=== PATIENT | female | born 1965 | race Caucasian/White ===

== ENCOUNTER 2017-04-08 15:18 | Emergency (ER) | payer BC ==
[2017-04-08] MEDS ORDERED: Ketorolac 60 MG/2 ML SDV IM ONE (16:40)
--- NOTE | 2017-04-08 16:40 | EDM.PDOC ---
ED HPI GENERAL MEDICAL PROBLEM - General Chief Complaint: Lower Extremity Injury/Pain Stated Complaint: Right knee injury, Right knee pain Time Seen by Provider: 04/08/17 15:54 Source of Information: Reports: Patient History Limitations: Reports: No Limitations - History of Present Illness INITIAL COMMENTS - FREE TEXT/NARRATIVE: Patient fell off of step while attempting to wash truck. Injured right ankle and knee when she fell. Has not tried to walk since incident. Thought she heard popping noise when this happened. No numbness/tingling distal to injury. Denies hitting head. Denies other injuries/complaints. Has history of significant right ankle strain/sprain in past when she fell while watering horses. Declines oral pain medication due to history of sensitive stomach and prior issues with ulcers. History significant for obesity also. Admits to poorer diet and chronic consumption of Mountain Dew Right Ankle Pain Score (Numeric/FACES): 9 knee Pain Score (Numeric/FACES): 9 - Related Data Allergies Allergy/AdvReac Type Severity Reaction Status Date / Time Sulfa (Sulfonamide Allergy Rash Verified 04/08/17 15:21 Antibiotics) Home Meds: Home Meds Ibuprofen 400 mg PO BID PRN 10/16/15 [History] Omeprazole 20 mg PO BIDAC 10/16/15 [History] Ranitidine HCl [Zantac] 150 mg PO BID 10/16/15 [History] Past Medical History HEENT History: Reports: Impaired Vision, Sinusitis Other HEENT History: wears glasses Respiratory History: Reports: Bronchitis, Recurrent, Other (See Below) Other Respiratory History: Hx. walking pneumonia Gastrointestinal History: Reports: Gastritis, GERD Musculoskeletal History: Reports: Arthritis, Back Pain, Chronic Neurological History: Reports: Headaches, Chronic Endocrine/Metabolic History: Reports: Obesity/BMI 30+ - Infectious Disease History Infectious Disease History: Reports: Chicken Pox Social & Family History - Tobacco Use Smoking Status *Q: Never Smoker Second Hand Smoke Exposure: No - Caffeine Use Caffeine Use: Reports: Coffee, Soda - Recreational Drug Use Recreational Drug Use: No Review of Systems - Review of Systems Review Of Systems: ROS reveals no pertinent complaints other than HPI. ED EXAM, GENERAL - Physical Exam Exam: See Below Exam Limited By: No Limitations General Appearance: Alert, WD/WN, Mild Distress, Obese Eye Exam: Bilateral Eye: EOMI, PERRL Ears: Normal External Exam Nose: Normal Inspection. No: Nasal Swelling, Nasal Drainage Throat/Mouth: Normal Inspection, Normal Lips, Normal Voice, No Airway Compromise Head: Atraumatic, Normocephalic Neck: Supple, Non-Tender, Full Range of Motion Respiratory/Chest: No Respiratory Distress, Chest Non-Tender Cardiovascular: Normal Peripheral Pulses Peripheral Pulses: 2+: Dorsalis Pedis (L), Dorsalis Pedis (R) GI/Abdominal: Soft, Non-Tender Extremities: Normal Inspection, Other (No obvious laxity noted during exam of right knee/ankle. ) Neurological: Alert, Oriented, Normal Cognition Psychiatric: Normal Affect, Normal Mood Skin Exam: Warm, Dry, Intact, Other (early bruising noted on lower leg just below knee right. ). No: Erythema, Increased Warmth, Mottled, Wound/Incision Course - Vital Signs Last Recorded V/S: Last Vital Signs Temp 36.7 C 04/08/17 15:30 Pulse 74 04/08/17 15:30 Resp 20 04/08/17 15:30 BP 148/52 H 04/08/17 15:30 Pulse Ox 98 04/08/17 15:30 - Orders/Labs/Meds Orders: Active Orders 24 hr Category Date Time Status Ankle Min 3V Rt [CR] Stat Exams 04/08/17 15:22 Taken Knee 3V Rt [CR] Stat Exams 04/08/17 15:22 Taken Meds: Medications Discontinued Medications Generic Name Dose Route Start Last Admin Trade Name Freq PRN Reason Stop Dose Admin Ketorolac Tromethamine 60 mg 04/08/17 16:40 04/08/17 16:59 Toradol IM 04/08/17 16:41 60 mg ONETIME ONE Administration - Radiology Interpretation Free Text/Narrative:: Xrays of knee and ankle on right performed. Small abnormality noted on tibial plateau lateral view but does not appear to be obvious fracture. Ankle film shows what could be old avulsion fracture laterally. Again, no obvious acute fracture. - Re-Assessments/Exams Free Text/Narrative Re-Assessment/Exam: Patient accepted IM Toradol. Did not want additional pain medication. Says she wishes to avoid narcotics as well as any other oral pain meds. Placed in air splint and knee immobilizer. Given crutches. Recommended to go home with sister and rest/avoid weight bearing over the next few days. To call local clinic tomorrow and arrange follow up check on Sunday. At that time MRI can be considered if no significant improvement is noted. Radiology to review xray. Will call patient if felt to be suggestive of fracture after review. Diet and Mountain Dew usage reviewed prior to discharge. Precautions given. OK to use her OTC pain meds at home as needed. Free Text/Narrative Re-Assessment/Exam: 04/09/17 13:23 No acute fracture noted per Radiology. Departure - Departure Time of Disposition: 16:34 Disposition: Home, Self-Care 01 Condition: Good Clinical Impression: Contusion of right knee and lower leg Qualifiers: Encounter type: initial encounter Qualified Code(s): S80.01XA - Contusion of right knee, initial encounter Right ankle sprain Qualifiers: Encounter type: initial encounter Involved ligament of ankle: unspecified ligament Qualified Code(s): S93.401A - Sprain of unspecified ligament of right ankle, initial encounter - Discharge Information Instructions: Crutch Use, [id number], Ketorolac injection, Ankle Sprain, Easy -to-Read, Knee Sprain, [id number], Knee Immobilizer, [id number], How to Use a Knee Brace Referrals: Christina Shi PA [Primary Care Provider] - Forms: ED Department Discharge, Return to Work/School Form Additional Instructions: No weight-bearing on injured leg for the next several days. Follow up on Sunday at local clinic for recheck of knee and foot. You may need to get an MRI if it it has not improved. Wear air splint and leg immobilizer for support. As discussed, there were a few small abnormalities noted on the xrays, however no obvious fracture seen. We will call you if Radiology feels there is a fracture once they have reviewed your films. Follow up otherwise as needed. - My Orders Last 24 Hours: My Active Orders 04/08/17 15:22 Ankle Min 3V Rt [CR] Stat Knee 3V Rt [CR] Stat - Assessment/Plan Last 24 Hours: My Active Orders 04/08/17 15:22 Ankle Min 3V Rt [CR] Stat Knee 3V Rt [CR] Stat
[2017-04-08 17:57] VITALS: BP 148/52
== END 2017-04-08 17:15 | disposition home or self-care (01) ==
LOC: LL.ED 15:18
DX: S80.01XA Contusion of right knee, initial encounter (principal); S93.401A Sprain of unspecified ligament of right ankle, initial encounter; K21.9 Gastro-esophageal reflux disease without esophagitis; E66.9 Obesity, unspecified; Z68.35 Body mass index [BMI] 35.0-35.9, adult; Z88.2 Allergy status to sulfonamides; W17.89XA Other fall from one level to another, initial encounter
CPT/HCPCS: 73562; 73610; 96372; 99283; J1885; L4350

== ENCOUNTER 2020-07-02 13:25 | Emergency (ER) | payer BC ==
[2020-07-02 17:58] LABS: CHLORIDE,CL 105 mmol/L (98-107); SODIUM,NA 139 mmol/L (136-145)
[2020-07-02 18:01] VITALS: BP 131/85; PULSE 59
--- NOTE | 2020-07-02 18:20 | EDM.PDOC ---
ED HPI GENERAL MEDICAL PROBLEM - General Chief Complaint: Chest Pain Stated Complaint: Chest pain Time Seen by Provider: 07/02/20 13:35 Source of Information: Reports: Patient History Limitations: Reports: No Limitations - History of Present Illness INITIAL COMMENTS - FREE TEXT/NARRATIVE: Pt presents with left sided chest pain Began several hours ago Worse now Pain 7/10 Has hx/o same in past but not recently Pt given NTG SL in ER and pain almost immediately went to 2/10 No fever No cough Onset: Today, Sudden Duration: Hour(s): Location: Reports: Chest Middle Chest Pain Score (Numeric/FACES): 2 - Related Data Allergies Allergy/AdvReac Type Severity Reaction Status Date / Time Sulfa (Sulfonamide Allergy Rash Verified 07/02/20 17:45 Antibiotics) Home Meds: Home Meds Ranitidine HCl [Ranitidine] 1 tab PO DAILY 07/02/20 [History] Past Medical History HEENT History: Reports: Impaired Vision, Sinusitis Other HEENT History: wears glasses Respiratory History: Reports: Bronchitis, Recurrent, Other (See Below) Other Respiratory History: Hx. walking pneumonia Gastrointestinal History: Reports: Gastritis, GERD Musculoskeletal History: Reports: Arthritis, Back Pain, Chronic Neurological History: Reports: Headaches, Chronic Endocrine/Metabolic History: Reports: Obesity/BMI 30+ - Infectious Disease History Infectious Disease History: Reports: Chicken Pox Social & Family History - Tobacco Use Smoking Status *Q: Never Smoker Second Hand Smoke Exposure: No - Caffeine Use Caffeine Use: Reports: Coffee, Soda - Recreational Drug Use Recreational Drug Use: No ED ROS GENERAL - Review of Systems Review Of Systems: See Below Constitutional: Reports: No Symptoms HEENT: Reports: No Symptoms Respiratory: Reports: No Symptoms Cardiovascular: Reports: Chest Pain GI/Abdominal: Reports: No Symptoms Musculoskeletal: Reports: No Symptoms ED EXAM, GENERAL - Physical Exam Exam: See Below Exam Limited By: No Limitations General Appearance: Alert, WD/WN, Mild Distress Throat/Mouth: Normal Oropharynx Neck: Supple Respiratory/Chest: Lungs Clear Cardiovascular: Regular Rate, Rhythm GI/Abdominal: Soft, Non-Tender Extremities: No Pedal Edema Neurological: No Motor/Sensory Deficits Psychiatric: Normal Affect, Normal Mood Course - Vital Signs Last Recorded V/S: Last Vital Signs Temp 97.9 F 07/02/20 17:52 Pulse 59 L 07/02/20 17:52 Resp 18 07/02/20 17:52 BP 131/85 07/02/20 17:52 Pulse Ox 100 07/02/20 17:52 - Orders/Labs/Meds Labs: Laboratory Tests 07/02/20 07/02/20 07/02/20 Range/Units 13:30 13:30 17:26 WBC 5.9 (4.0-10.2) K/uL RBC 4.28 (3.77-5.09) M/uL Hgb 13.0 (11.7-15.5) g/dL Hct 38.1 (34.0-46.0) % MCV 89.0 (84.0-98.0) fL MCH 30.4 (28.2-33.3) pg MCHC 34.1 (31.7-36.0) g/dL RDW 12.4 (11.2-14.1) % Plt Count 161 (150-350) K/uL Neut % (Auto) 57.2 (45.0-80.0) % Lymph % (Auto) 33.1 (10.0-50.0) % [place] % (Auto) 7.3 (2.0-14.0) % Eos % (Auto) 2.2 (0.0-5.0) % Baso % (Auto) 0.2 (0.0-2.0) % Neut # (Auto) 3.35 (1.40-7.00) K/uL Lymph # (Auto) 1.94 (0.50-3.50) K/uL [place] # (Auto) 0.43 (0.00-1.00) K/uL Eos # (Auto) 0.13 (0.00-0.50) K/uL Baso # (Auto) 0.01 (0.00-0.20) K/uL Sodium 139 (136-145) mmol/L Potassium 3.8 (3.5-5.1) mmol/L Chloride 105 (98-107) mmol/L Carbon Dioxide 25.9 (21.0-32.0) mmol/L BUN 19 H (7-18) mg/dL Creatinine 0.93 (0.51-1.17) mg/dL Est Cr Clr Drug Dosing TNP Estimated GFR (MDRD) > 60 mL/min Glucose 97 (74-106) mg/dL Calcium 9.1 (8.5-10.1) mg/dL Total Bilirubin 0.6 (0.2-1.0) mg/dL AST 21 (15-37) U/L ALT 33 (12-78) U/L Alkaline Phosphatase 64 (46-116) IU/L Troponin I 0.032 0.045 (0.000-0.056) ng/mL Total Protein 7.1 (6.4-8.2) g/dL Albumin 4.1 (3.4-5.0) g/dL - Re-Assessments/Exams Free Text/Narrative Re-Assessment/Exam: 07/02/20 18:18 Pt stable in ER Pain resolved and has not recurred Repeat Troponin remains in normal range No pain currently Pt desires to follow up in clinic with usual provider for further follow up Departure - Departure Time of Disposition: 18:30 Disposition: Home, Self-Care 01 Clinical Impression: Chest pain Qualifiers: Chest pain type: unspecified Qualified Code(s): R07.9 - Chest pain, unspecified Instructions: Nonspecific Chest Pain, Adult Referrals: Teresa Ballard PAGodwin[facility] [Primary Care Provider] - Additional Instructions: Follow up in clinic To ER if recurs Sepsis Event Note (ED) - Focused Exam Vital Signs: Vital Signs Temp Pulse Resp BP Pulse Ox 07/02/20 17:52 97.9 F 59 L 18 131/85 100 07/02/20 16:59 97.8 F 58 L 22 H 118/59 L 100 07/02/20 16:00 98.6 F 57 L 15 124/79 100
== END 2020-07-02 18:35 | disposition home or self-care (01) ==
LOC: LL.ED 13:25
DX: R07.9 Chest pain, unspecified (principal); K21.9 Gastro-esophageal reflux disease without esophagitis; E66.9 Obesity, unspecified; Z88.2 Allergy status to sulfonamides; Z79.899 Other long term (current) drug therapy
CPT/HCPCS: 36415; 80053; 84484; 85025; 93005; 99283; 99284

== ENCOUNTER 2021-08-18 21:41 | Emergency (ER) | payer BC ==
[2021-08-18 22:24] VITALS: BP 125/75; PULSE 68
[2021-08-18 22:33] LABS: ANION GAP 9.7 meq/L (7-15); CHLORIDE,CL 106 mmol/L (98-107); SODIUM,NA 144 mmol/L (136-145)
--- NOTE | 2021-08-18 23:39 | EDM.PDOC ---
ED HPI GENERAL MEDICAL PROBLEM - General Chief Complaint: General Stated Complaint: Feels off Time Seen by Provider: 08/18/21 22:20 Source of Information: Reports: Patient History Limitations: Reports: No Limitations - History of Present Illness INITIAL COMMENTS - FREE TEXT/NARRATIVE: Pt. presents to ER with complaints of not feeling well. She states that she noticed the symptoms while at work today at [employer] She complains of mild shortness of breath with activity. She complains of feeling somewhat lightheaded. No current chest pain. No jaw, arm, neck or back pain. Pt. denies any fever or chills. No nausea, vomiting, or diarrhea. No bloody stools. Denies any ill contacts. Pt. states that she has a history of CAD and had a "silent heart attack" last year. She denies any abdominal pain, dysuria or flank pain. Onset: Today Location: Reports: Generalized - Related Data Allergies Allergy/AdvReac Type Severity Reaction Status Date / Time Sulfa (Sulfonamide Allergy Rash Verified 07/02/20 17:45 Antibiotics) Home Meds: Home Meds Ranitidine HCl [Ranitidine] 1 tab PO DAILY 07/02/20 [History] Ascorbic Acid [Vitamin C] 500 mg PO DAILY 08/18/21 [History] Cholecalciferol (Vitamin D3) [Vitamin D3] 2,000 unit PO DAILY 08/18/21 [History] Nitrofurantoin Monohyd/M-Cryst [Macrobid 100 mg Capsule] 100 mg PO BID #4 capsule 08/18/21 [Rx] Omeprazole 20 mg PO DAILY 08/18/21 [History] Ranolazine [Ranolazine ER] 500 mg PO BID 08/18/21 [History] Ubidecarenone [Coq10] 50 mg PO DAILY 08/18/21 [History] Zinc 50 mg PO DAILY 08/18/21 [History] amLODIPine [Norvasc] 2.5 mg PO DAILY 08/18/21 [History] Past Medical History HEENT History: Reports: Impaired Vision, Sinusitis Other HEENT History: wears glasses Respiratory History: Reports: Bronchitis, Recurrent, Other (See Below) Other Respiratory History: Hx. walking pneumonia Gastrointestinal History: Reports: Gastritis, GERD Musculoskeletal History: Reports: Arthritis, Back Pain, Chronic Neurological History: Reports: Headaches, Chronic Endocrine/Metabolic History: Reports: Obesity/BMI 30+ - Infectious Disease History Infectious Disease History: Reports: Chicken Pox Social & Family History - Tobacco Use Tobacco Use Status *Q: Never Tobacco User Second Hand Smoke Exposure: No - Caffeine Use Caffeine Use: Reports: Coffee, Soda - Recreational Drug Use Recreational Drug Use: No ED ROS GENERAL - Review of Systems Review Of Systems: See Below Constitutional: Reports: Malaise, Fatigue HEENT: Reports: No Symptoms Respiratory: Reports: Shortness of Breath. Denies: Wheezing, Cough Cardiovascular: Reports: Dyspnea on Exertion, Lightheadedness Endocrine: Reports: No Symptoms GI/Abdominal: Reports: No Symptoms : Reports: No Symptoms Musculoskeletal: Reports: No Symptoms Skin: Reports: No Symptoms Neurological: Reports: No Symptoms Psychiatric: Reports: No Symptoms Hematologic/Lymphatic: Reports: No Symptoms Immunologic: Reports: No Symptoms ED EXAM, GENERAL - Physical Exam Exam: See Below Exam Limited By: No Limitations General Appearance: Alert, WD/WN, No Apparent Distress Eye Exam: Bilateral Eye: EOMI, Normal Fundi, Normal Inspection, PERRL Head: Atraumatic, Normocephalic Neck: Normal Inspection, Supple, Non-Tender, Full Range of Motion Respiratory/Chest: No Respiratory Distress, Lungs Clear, Normal Breath Sounds, No Accessory Muscle Use, Chest Non-Tender Cardiovascular: Normal Peripheral Pulses, Regular Rate, Rhythm, No Edema, No JVD, No Murmur Peripheral Pulses: 4+: Radial (L) GI/Abdominal: Soft, Non-Tender (Female) Exam: Deferred Rectal (Female) Exam: Deferred Back Exam: Normal Inspection, Full Range of Motion Extremities: Normal Inspection, Normal Range of Motion, Non-Tender, No Pedal Edema, Normal Capillary Refill Neurological: Alert, Oriented, CN II-XII Intact, Normal Cognition, Normal Reflexes, No Motor/Sensory Deficits Psychiatric: Normal Affect, Normal Mood Skin Exam: Warm, Dry, Intact, Normal Color, No Rash Lymphatic: No Adenopathy #1 Interpretation Rhythm: NSR Only: Normal P-Wave: Present QRS: Normal ST-T: Normal QT: Normal Comparison: No Change Course - Vital Signs Last Recorded V/S: Last Vital Signs Temp 36.4 C 08/18/21 22:23 Pulse 68 08/18/21 22:23 Resp 14 08/18/21 22:23 BP 125/75 08/18/21 22:23 Pulse Ox 100 08/18/21 22:23 - Orders/Labs/Meds Orders: Active Orders 24 hr Category Date Time Status CORONAVIRUS COVID-19 VICKI [MOLEC] Stat Lab 08/18/21 22:10 Received EKG 12 Lead [EK] Stat Ther 08/18/21 21:59 Ordered Labs: Laboratory Tests 08/18/21 08/18/21 08/18/21 Range/Units 22:00 22:00 22:00 WBC 9.8 (4.0-10.2) K/uL RBC 4.58 (3.77-5.09) M/uL Hgb 13.7 (11.7-15.5) g/dL Hct 40.7 (34.0-46.0) % MCV 88.9 (84.0-98.0) fL MCH 29.9 (28.2-33.3) pg MCHC 33.7 (31.7-36.0) g/dL RDW 12.4 (11.2-14.1) % Plt Count 210 (150-350) K/uL Neut % (Auto) 62.1 (45.0-80.0) % Lymph % (Auto) 28.0 (10.0-50.0) % [place] % (Auto) 7.5 (2.0-14.0) % Eos % (Auto) 2.2 (0.0-5.0) % Baso % (Auto) 0.2 (0.0-2.0) % Neut # (Auto) 6.07 (1.40-7.00) K/uL Lymph # (Auto) 2.74 (0.50-3.50) K/uL [place] # (Auto) 0.73 (0.00-1.00) K/uL Eos # (Auto) 0.22 (0.00-0.50) K/uL Baso # (Auto) 0.02 (0.00-0.20) K/uL D-Dimer, Quantitative (0-400) ng/mL Sodium 144 (136-145) mmol/L Potassium 3.9 (3.5-5.1) mmol/L Chloride 106 (98-107) mmol/L Carbon Dioxide 28.3 (21.0-32.0) mmol/L Anion Gap 9.7 (7-15) meq/L BUN 24 H (7-18) mg/dL Creatinine 1.24 H (0.51-1.17) mg/dL Est Cr Clr Drug Dosing TNP Estimated GFR (MDRD) 45 mL/min Glucose 104 H (70-99) mg/dL Calcium 8.7 (8.5-10.1) mg/dL Total Bilirubin 0.5 (0.2-1.0) mg/dL AST 22 (15-37) U/L ALT 35 (12-78) U/L Alkaline Phosphatase 90 (46-116) IU/L Troponin I High Sens 7 (<=51) ng/L Total Protein 7.4 (6.4-8.2) g/dL Albumin 4.3 (3.4-5.0) g/dL Specimen Type Urine Color Urine Appearance Urine pH (5.0-9.0) Ur Specific [place] (1.005-1.030) Urine Protein (NEGATIVE) mg/dL Urine Glucose (UA) (NEGATIVE) mg/dL Urine Ketones (NEGATIVE) mg/dL Urine Occult Blood (NEGATIVE) Urine Nitrite (NEGATIVE) Urine Bilirubin (NEGATIVE) Urine Urobilinogen (0.2-1.0) E.U./dL Ur Leukocyte Esterase (NEGATIVE) Urine RBC /HPF Urine WBC /HPF Ur Epithelial Cells /LPF Urine Bacteria (NONE TO FEW) /HPF Urine Mucus (NEGATIVE) /LPF SARS-CoV-2 Ag (Rapid) (NEGATIVE) 08/18/21 08/18/21 08/18/21 Range/Units 22:00 22:05 22:10 WBC (4.0-10.2) K/uL RBC (3.77-5.09) M/uL Hgb (11.7-15.5) g/dL Hct (34.0-46.0) % MCV (84.0-98.0) fL MCH (28.2-33.3) pg MCHC (31.7-36.0) g/dL RDW (11.2-14.1) % Plt Count (150-350) K/uL Neut % (Auto) (45.0-80.0) % Lymph % (Auto) (10.0-50.0) % [place] % (Auto) (2.0-14.0) % Eos % (Auto) (0.0-5.0) % Baso % (Auto) (0.0-2.0) % Neut # (Auto) (1.40-7.00) K/uL Lymph # (Auto) (0.50-3.50) K/uL [place] # (Auto) (0.00-1.00) K/uL Eos # (Auto) (0.00-0.50) K/uL Baso # (Auto) (0.00-0.20) K/uL D-Dimer, Quantitative < 100 (0-400) ng/mL Sodium (136-145) mmol/L Potassium (3.5-5.1) mmol/L Chloride (98-107) mmol/L Carbon Dioxide (21.0-32.0) mmol/L Anion Gap (7-15) meq/L BUN (7-18) mg/dL Creatinine (0.51-1.17) mg/dL Est Cr Clr Drug Dosing Estimated GFR (MDRD) mL/min Glucose (70-99) mg/dL Calcium (8.5-10.1) mg/dL Total Bilirubin (0.2-1.0) mg/dL AST (15-37) U/L ALT (12-78) U/L Alkaline Phosphatase (46-116) IU/L Troponin I High Sens (<=51) ng/L Total Protein (6.4-8.2) g/dL Albumin (3.4-5.0) g/dL Specimen Type Urinvoid Urine Color Dark yellow Urine Appearance Cloudy Urine pH 5.5 (5.0-9.0) Ur Specific [place] >= 1.030 (1.005-1.030) Urine Protein Negative (NEGATIVE) mg/dL Urine Glucose (UA) Negative (NEGATIVE) mg/dL Urine Ketones Negative (NEGATIVE) mg/dL Urine Occult Blood Negative (NEGATIVE) Urine Nitrite Negative (NEGATIVE) Urine Bilirubin Negative (NEGATIVE) Urine Urobilinogen 0.2 (0.2-1.0) E.U./dL Ur Leukocyte Esterase Trace H (NEGATIVE) Urine RBC 0-5 /HPF Urine WBC 40-50 H /HPF Ur Epithelial Cells Many H /LPF Urine Bacteria Moderate H (NONE TO FEW) /HPF Urine Mucus Moderate H (NEGATIVE) /LPF SARS-CoV-2 Ag (Rapid) Negative (NEGATIVE) Departure - Departure Time of Disposition: 23:44 Disposition: Home, Self-Care 01 Clinical Impression: Dehydration, UTI (urinary tract infection) - Discharge Information Prescriptions: Nitrofurantoin Monohyd/M-Cryst [Macrobid 100 mg Capsule] 100 mg PO BID #4 capsule Instructions: Nitrofurantoin tablets or capsules, Dehydration, Adult, [id number], Urinary Tract Infection, Adult, Probiotics Forms: ED Department Discharge Additional Instructions: macrobid 100mg 1 twice daily for 5 days Home to rest. Off work tonight and tomorrow. Increase consumption of water. Follow-up in clinic in 10-14 days Return to ER if you have trouble breathing or chest pain that doesn't go away. Sepsis Event Note (ED) - Evaluation Sepsis Screening Result: No Definite Risk - Focused Exam Vital Signs: Vital Signs Temp Pulse Resp BP Pulse Ox 08/18/21 22:23 36.4 C 68 14 125/75 100 - Problem List Review Problem List Initiated/Reviewed/Updated: Yes - My Orders Last 24 Hours: My Active Orders 08/18/21 21:59 EKG 12 Lead [EK] Stat 08/18/21 22:10 CORONAVIRUS COVID-19 VICKI [MOLEC] Stat - Assessment/Plan Last 24 Hours: My Active Orders 08/18/21 21:59 EKG 12 Lead [EK] Stat 08/18/21 22:10 CORONAVIRUS COVID-19 VICKI [MOLEC] Stat Plan: macrobid 100mg 1 twice daily for 5 days Home to rest. Off work tonight and tomorrow. Increase consumption of water. Follow-up in clinic in 10-14 days Return to ER if you have trouble breathing or chest pain.
== END 2021-08-18 23:35 | disposition home or self-care (01) ==
LOC: LL.ED 21:41
DX: N39.0 Urinary tract infection, site not specified (principal); E86.0 Dehydration; I25.10 Atherosclerotic heart disease of native coronary artery without angina pectoris; K21.9 Gastro-esophageal reflux disease without esophagitis; E66.9 Obesity, unspecified; Z68.36 Body mass index [BMI] 36.0-36.9, adult; Z88.2 Allergy status to sulfonamides; Z79.899 Other long term (current) drug therapy; Z20.822 Contact with and (suspected) exposure to COVID-19
CPT/HCPCS: 36415; 80053; 81001; 84484; 85025; 85379; 87426; 93005; 99285-25

== ENCOUNTER 2022-06-06 10:13 | Emergency (ER) | payer BC ==
[2022-06-06] MEDS ORDERED: Sodium Chloride 0.9% 10 ML Syringe FLUSH PRN (10:25)
[2022-06-06] MEDS ORDERED: Aspirin 81 MG Tab.Chew PO ONE (10:25)
[2022-06-06] MEDS ORDERED: Nitroglycerin 0.4 MG Tab.SL SL ONE (10:25)
[2022-06-06] MEDS ORDERED: Lactated Ringers 1,000 ML IV SCH (10:45)
[2022-06-06 11:15] LABS: ANION GAP 9.3 meq/L (7-15); CHLORIDE,CL 105 mmol/L (98-107); SODIUM,NA 141 mmol/L (136-145)
[2022-06-06 11:18] LABS: ESTIMATED GFR 57 mL/min (>=60)
[2022-06-06 14:17] VITALS: BP 101/70; PULSE 63
== END 2022-06-06 12:15 | disposition home or self-care (01) ==
LOC: LL.ED 10:13
DX: R07.89 Other chest pain (principal); E86.0 Dehydration; R53.83 Other fatigue; E66.9 Obesity, unspecified; Z88.2 Allergy status to sulfonamides; Z79.899 Other long term (current) drug therapy
CPT/HCPCS: 36415; 71045; 80053; 81003; 83735; 83880; 84100; 84484; 85025; 85379; 85610; 85730; 86140; 93005; 93010; 96360; 96361; 99284; 99285-25; A9270-GY; J3490; J7120

== ENCOUNTER 2023-02-22 07:23 | Emergency (ER) | payer BC ==
[2023-02-22 07:40] VITALS: BP 126/90; PULSE 69
== END 2023-02-22 08:10 | disposition home or self-care (01) ==
LOC: LL.ED 07:23
DX: L02.811 Cutaneous abscess of head [any part, except face] (principal); K21.9 Gastro-esophageal reflux disease without esophagitis; E66.9 Obesity, unspecified; Z88.2 Allergy status to sulfonamides; Z79.899 Other long term (current) drug therapy
CPT/HCPCS: 10060; 99283

== ENCOUNTER 2023-03-04 09:26 | Emergency (ER) | payer BC ==
[2023-03-04] MEDS ORDERED: Sodium Chloride 0.9% 10 ML Syringe FLUSH PRN (09:31)
[2023-03-04] MEDS ORDERED: Aspirin 81 MG Tab.Chew PO ONE (09:33)
[2023-03-04 09:42] LABS: BASOPHILS ABSOLUTE AUTO 0.01 K/uL (0.00-0.20); BASOPHILS PERCENT AUTO 0.1 % (0.0-2.0); EOSINOPHILS ABSOLUTE AUTO 0.12 K/uL (0.00-0.50); EOSINOPHILS PERCENT AUTO 1.3 % (0.0-5.0); HEMATOCRIT 38.1 % (34.0-46.0); HEMOGLOBIN 12.7 g/dL (11.7-15.5); LYMPHOCYTES ABSOLUTE AUTO 1.97 K/uL (0.50-3.50); LYMPHOCYTES PERCENT AUTO 20.5 % (10.0-50.0); MEAN CORPUSCULAR HEMOGLOBIN 29.3 pg (28.2-33.3); MEAN CORPUSCULAR HGB CONC 33.3 g/dL (31.7-36.0); MEAN CORPUSCULAR VOLUME 87.8 fL (84.0-98.0); MONOCYTES ABSOLUTE AUTO 0.46 K/uL (0.00-1.00); MONOCYTES PERCENT AUTO 4.8 % (2.0-14.0); NEUTROPHILS ABSOLUTE AUTO 7.03 K/uL (1.40-7.00); NEUTROPHILS PERCENT AUTO 73.3 % (45.0-80.0); PLATELET COUNT,PLT 184 K/uL (150-350); RED BLOOD CELL COUNT 4.34 M/uL (3.77-5.09); RED CELL DISTRIBUTION WIDTH 12.4 % (11.2-14.1); WHITE BLOOD CELL COUNT,WBC 9.6 K/uL (4.0-10.2)
[2023-03-04 10:25] LABS: ALANINE AMINOTRANSFERASE,ALT 23 U/L (12-78); ALBUMIN 3.7 g/dL (3.4-5.0); ALKALINE PHOSPHATASE 78 IU/L (46-116); ASPARTATE AMNIOTRANSFERASE,AST 20 U/L (15-37); BILIRUBIN TOTAL 0.8 mg/dL (0.2-1.0); BLOOD UREA NITROGEN,BUN 27 mg/dL (7-18); CALCIUM 8.8 mg/dL (8.5-10.1); CHLORIDE,CL 105 mmol/L (98-107); CREATININE 1.15 mg/dL (0.51-1.17); GLUCOSE RANDOM 101 mg/dL (70-99); MAGNESIUM 2.1 mg/dL (1.8-2.4); POTASSIUM,K 4.4 mmol/L (3.5-5.1); SODIUM,NA 140 mmol/L (136-145)
[2023-03-04 10:29] LABS: ESTIMATED GFR 56 mL/min (>=60)
[2023-03-04 14:09] VITALS: BP 105/72; PULSE 64
== END 2023-03-04 12:50 | disposition home or self-care (01) ==
LOC: LL.ED 09:26
DX: R07.2 Precordial pain (principal); I25.10 Atherosclerotic heart disease of native coronary artery without angina pectoris; K21.9 Gastro-esophageal reflux disease without esophagitis; E66.9 Obesity, unspecified; Z88.2 Allergy status to sulfonamides; Z79.899 Other long term (current) drug therapy
CPT/HCPCS: 36415; 71045; 80053; 83735; 84484; 85025; 93005; 99285

== ENCOUNTER 2023-03-06 10:57 | Emergency (ER) | payer BC ==
[2023-03-06 11:09] VITALS: BP 111/58; PULSE 78
[2023-03-06] MEDS ORDERED: Ondansetron 4 MG Tab.DIS PO ONE (11:33)
[2023-03-06] MEDS ORDERED: SUMAtriptan 50 MG Tab PO ONE (11:33)
[2023-03-06 11:41] LABS: BASOPHILS ABSOLUTE AUTO 0.01 K/uL (0.00-0.20); BASOPHILS PERCENT AUTO 0.1 % (0.0-2.0); EOSINOPHILS PERCENT AUTO 1.4 % (0.0-5.0); HEMATOCRIT 38.7 % (34.0-46.0); HEMOGLOBIN 12.8 g/dL (11.7-15.5); LYMPHOCYTES ABSOLUTE AUTO 1.38 K/uL (0.50-3.50); LYMPHOCYTES PERCENT AUTO 19.7 % (10.0-50.0); MEAN CORPUSCULAR HEMOGLOBIN 29.2 pg (28.2-33.3); MEAN CORPUSCULAR HGB CONC 33.1 g/dL (31.7-36.0); MEAN CORPUSCULAR VOLUME 88.2 fL (84.0-98.0); MONOCYTES ABSOLUTE AUTO 1.05 K/uL (0.00-1.00); NEUTROPHILS ABSOLUTE AUTO 4.47 K/uL (1.40-7.00); NEUTROPHILS PERCENT AUTO 63.8 % (45.0-80.0); PLATELET COUNT,PLT 161 K/uL (150-350); RED BLOOD CELL COUNT 4.39 M/uL (3.77-5.09); RED CELL DISTRIBUTION WIDTH 12.6 % (11.2-14.1)
[2023-03-06 12:12] LABS: ALANINE AMINOTRANSFERASE,ALT 48 U/L (12-78); ALBUMIN 3.7 g/dL (3.4-5.0); ALKALINE PHOSPHATASE 83 IU/L (46-116); ANION GAP 10.3 meq/L (7-15); ASPARTATE AMNIOTRANSFERASE,AST 33 U/L (15-37); BILIRUBIN TOTAL 0.9 mg/dL (0.2-1.0); BLOOD UREA NITROGEN,BUN 25 mg/dL (7-18); CALCIUM 9.2 mg/dL (8.5-10.1); CARBON DIOXIDE,CO2 26.7 mmol/L (21.0-32.0); CHLORIDE,CL 103 mmol/L (98-107); CREATININE 1.24 mg/dL (0.51-1.17); GLUCOSE RANDOM 73 mg/dL (70-99); POTASSIUM,K 4.1 mmol/L (3.5-5.1); PROTEIN TOTAL,TP 7.3 g/dL (6.4-8.2); SODIUM,NA 140 mmol/L (136-145)
[2023-03-06 12:20] LABS: ESTIMATED GFR 51 mL/min (>=60); TSH ULTRASENSITIVE 0.255 mIU/mL (0.358-3.740)
[2023-03-06 13:36] LABS: APPEARANCE,URINE CLEAR; BILIRUBIN,URINE NEGATIVE (NEGATIVE); COLOR,URINE DARK YELLOW; GLUCOSE,URINE NEGATIVE (NEGATIVE); KETONES,URINE NEGATIVE (NEGATIVE); LEUKOCYTE ESTERASE,URINE NEGATIVE (NEGATIVE); NITRITE,URINE NEGATIVE (NEGATIVE); OCCULT BLOOD,URINE NEGATIVE (NEGATIVE); PH,URINE 5.5 (5.0-9.0); PROTEIN,URINE NEGATIVE (NEGATIVE); UROBILINOGEN,URINE 0.2 E.U./dL (0.2-1.0)
== END 2023-03-06 13:59 | disposition home or self-care (01) ==
LOC: LL.ED 10:57
DX: R94.6 Abnormal results of thyroid function studies (principal); R53.83 Other fatigue; I25.10 Atherosclerotic heart disease of native coronary artery without angina pectoris; K21.9 Gastro-esophageal reflux disease without esophagitis; E66.9 Obesity, unspecified; Z88.2 Allergy status to sulfonamides; Z79.899 Other long term (current) drug therapy
CPT/HCPCS: 36415; 80053; 81003; 83605; 83735; 84443; 84484; 85025; 99284; A9270-GY